=== PATIENT | female | born 1960 | race American Indian/Alaskan Native ===

== ENCOUNTER 2019-12-16 11:44 | Emergency (ER) | payer OTHER ==
[2019-12-16 13:42] VITALS: BP 162/113
--- NOTE | 2019-12-16 13:43 | Emergency Department Report ---
ED Eye Problem HPI - General Chief complaint: Eye Problems Stated complaint: LFT EYE INFECTION Time Seen by Provider: 12/16/19 13:38 Source: patient Mode of arrival: Ambulatory Limitations: No Limitations - History of Present Illness Initial comments: The patient was evaluated in the emergency department for symptoms described in the history of present illness. He/she was evaluated in the context of the global COVID-19 pandemic, which necessitated consideration that the patient might be at risk for infection with the virus that causes COVID-19. In stitutional protocols and algorithms that pertain to the evaluation of patients at risk for COVID-19 are in a state of rapid change based on information released by regulatory bodies including the CDC and federal and state organizations. These policies and algorithms were followed during the patient's care in the emergency department. Please note that these policies, procedures and recommendations changed on a rapid basis. 59-year-old -[place] female presents to the emergency room complaining of left eye redness and pain for about 5 days. Patient states that she has been moving and around a lot of dust and dirt. She states that the pain has started on Wednesday and progressively getting worse. Patient states that she had taken her tramadol for her back but not helping with the pain. Patient also reports that she has not taken her blood pressure medication since Wednesday. Patient denies any chest pain shortness of breathing any nausea vomiting. MD chief complaint: eye pain, eye redness Onset/Timin -: days(s) Onset Description: gradual Location: left eye Place: home Eye Symptoms: redness, pain, discharge Severity scale (0 -10): 9 If Pain, Quality: sharp, burning, throbbing Consistency: constant Treatments Prior to Arrival: none - Related Data Previous Rx's Medication Instructions Recorded Last Taken Type Erythromycin [Erythromycin Ophth 1 strip OS QID 10 Days #1 tube 12/16/19 Unknown Rx Oint] Ibuprofen [Motrin 600 MG tab] 600 mg PO Q8H PRN #30 tablet 12/16/19 Unknown Rx Allergies Allergy/AdvReac Type Severity Reaction Status Date / Time No Known Allergies Allergy Unverified 12/16/19 11:46 ED Review of Systems ROS: Stated complaint: LFT EYE INFECTION Other details as noted in HPI Comment: All other systems reviewed and negative ED Past Medical Hx - Past Medical History Previous Medical History?: Yes Hx Hypertension: Yes Hx Heart Attack/AMI: Yes (2013) Hx Diabetes: Yes - Surgical History Past Surgical History?: Yes Hx Coronary Stent: Yes Additional Surgical History: Bol[place] neil - Social History Smoking Status: Current Every Day Smoker Substance Use Type: Marijuana - Medications Home Medications: Home Medications Medication Instructions Recorded Confirmed Last Taken Type Erythromycin [Erythromycin Ophth 1 strip OS QID 10 Days #1 tube 12/16/19 Unknown Rx Oint] Ibuprofen [Motrin 600 MG tab] 600 mg PO Q8H PRN #30 tablet 12/16/19 Unknown Rx ED Physical Exam - General Limitations: No Limitations General appearance: alert, in no apparent distress - Head Head exam: Present: atraumatic, normocephalic - Eye Eye exam: Present: PERRL - Expanded Eye Exam Expanded Eyelids: Erythema: Left, Swelling: Left (Appears to be a blocked tear duct of the left eye) - ENT ENT exam: Present: mucous membranes moist - Neck Neck exam: Present: normal inspection, full ROM - Respiratory Respiratory exam: Absent: accessory muscle use - Extremities Exam Extremities exam: Present: normal inspection - Neurological Exam Neurological exam: Present: alert, oriented X3, normal gait - Psychiatric Psychiatric exam: Present: normal affect, normal mood - Skin Skin exam: Present: warm, dry, intact, normal color. Absent: rash ED Course Vital Signs 12/16/19 11:49 Temperature 98.3 F Pulse Rate 89 Respiratory 15 Rate Blood Pressure 174/113 O2 Sat by Pulse 97 Oximetry ED Medical Decision Making - Medical Decision Making 59-year-old -[place] female presents to the emergency room complaining of left eye redness and pain for about 5 days. Patient states that she has been moving and around a lot of dust and dirt. She states that the pain has started on Wednesday and progressively getting worse. Patient states that she had taken her tramadol for her back but not helping with the pain. Patient also reports that she has not taken her blood pressure medication since Wednesday. Patient denies any chest pain shortness of breathing any nausea vomiting. Patient appears to have a blocked tear duct. Will place her on antibiotics such as erythromycin ophthalmic ointment. Ibuprofen or Tylenol for pain and swelling. Continue with warm compresses and take your blood pressure medicine. Critical care attestation.: If time is entered above; I have spent that time in minutes in the direct care of this critically ill patient, excluding procedure time. ED Disposition Clinical Impression: Blocked tear duct Disposition: [id number] TO HOME OR SELFCARE Is pt being admited?: No Does the pt Need Aspirin: No Condition: Stable Additional Instructions: Use eyedrops as prescribed. Ibuprofen or Tylenol for pain management. Warm compresses. If no improvement follow-up with an gear technician. Prescriptions: Erythromycin [Erythromycin Ophth Oint] 1 strip OS QID 10 Days #1 tube Ibuprofen [Motrin 600 MG tab] 600 mg PO Q8H PRN #30 tablet PRN Reason: Pain Referrals: FER WHITAKER MD [Staff Physician] - 3-5 Days Forms: Work/School Release Form(ED)
== END 2019-12-16 14:02 | disposition home or self-care (01) ==
LOC: ED 11:44
DX: S05.8X2A Other injuries of left eye and orbit, initial encounter (principal); I10 Essential (primary) hypertension; E11.9 Type 2 diabetes mellitus without complications; I25.2 Old myocardial infarction; F17.200 Nicotine dependence, unspecified, uncomplicated; F12.10 Cannabis abuse, uncomplicated; Z95.818 Presence of other cardiac implants and grafts; X58.XXXA Exposure to other specified factors, initial encounter; Y93.89 Activity, other specified; Y92.89 Other specified places as the place of occurrence of the external cause; Y99.8 Other external cause status
CPT/HCPCS: 99282